=== PATIENT | male | born 1990 | race Caucasian/White ===

== ENCOUNTER 2020-11-14 12:29 | Emergency (ER) | payer OTHER, SELFPAY ==
--- NOTE | 2020-11-14 | ECG_ITS ---
Test Reason : CHEST PAIN Blood Pressure : / mmHG Vent. Rate : 071 BPM Atrial Rate : 071 BPM P-R Int : 160 ms QRS Dur : 082 ms QT Int : 368 ms P-R-T Axes : 052 062 042 degrees QTc Int : 399 ms Normal sinus rhythm Normal ECG No previous ECGs available Referred By: Isabel Higginbotham Electronically Signed By:MARCO LIN
--- NOTE | ~2020-11-14 | XR_ITS ---
EXAMINATION: XR CHEST CLINICAL INFORMATION: Chest pain COMPARISON: None TECHNIQUE: AP portable view of the chest was obtained. FINDINGS: No significant abnormality is noted involving the heart, lungs, mediastinum, bony thorax or soft tissues. XR/XR chest 1V IMPRESSION: No acute disease
[2020-11-14 12:34] VITALS: BP 155/92; PULSE 66; RESP 18; TEMP 36.2; O2SAT 98; BMI 29.6
--- NOTE | 2020-11-14 12:39 | PC.NURSE ---
NO EKG MACHINE AVAILABLE AT THIS TIME
--- NOTE | 2020-11-14 14:24 | ED_ITS ---
HPI - Chest Pain General Chief Complaint: Chest Pain Stated Complaint: bad chest pain Time Seen by Provider: 11/14/20 14:24 Source: patient Mode of arrival: ambulatory Limitations: no limitations History of Present Illness MD complaint: chest pain Onset (ago): hour(s) (started at work 11am) Timing of current episode: other (improving) Prior episodes: No Onset: during rest Pain location: left chest Pain radiation: left shoulder Severity: moderate Quality: sharp Relieving factors: nothing Exacerbating factors: nothing Treatment prior to arrival: none Related Data Home Medications Medication Instructions Recorded Confirmed No Known Home Meds 11/14/20 11/14/20 Allergies Allergy/AdvReac Type Severity Reaction Status Date / Time No Known Allergies Allergy Verified 11/14/20 12:37 Review of Systems Review of Systems: Constitutional : No Weight loss, No Fever, No Chills ENT/Mouth : No sore throat, No Rhinorrhea Eyes: No Eye Pain, No Swelling Cardiovascular : pos Chest Pain, no SOB, no Dyspnea on Exertion, No Orthopnea, No Edema, No Palpitations Respiratory : No Cough, No Sputum Gastrointestinal : pos Nausea, No Vomiting, No Diarrhea, No abdominal Pain, No Hematochezia, No Melena Genitourinary : No Dysuria, No Urinary Frequency Musculoskeletal : No joint pain, No Myalgias, No Joint Swelling Skin : No Skin Lesions, No rash Neuro : No Weakness, No Numbness, No Dizziness, No Headache Psych : No Anxiety/Panic, No Depression Heme/Lymph: No Bruising, No Lymphadenopathy Endocrine : No Polyuria, No Polydipsia All other systems reviewed and are negative [facility] Past Medical History Medical History No known health problems Social History Social History (Updated 11/14/20 @ 14:41 by Isabel Higginbotham DO) Alcohol intake: current Alcohol intake frequency: a few times a week Patient Tobacco Use Status: Current everyday Tobacco user Smoked in Last 30 Days: No Use of substances other than those prescribed or required for medical reasons: No Advance Directives: Yes Advance Directives Information Provided: No Advance Directives on File: No Physical Exam Vital Signs: Vital Signs: Last Vital Signs Temp 97.2 F 11/14/20 12:34 Pulse 63 11/14/20 14:44 Resp 15 11/14/20 14:44 BP 147/90 H 05/27/21 14:44 Pulse Ox 98 11/14/20 14:44 Body Mass Index 29.6 Appearance: Alert. Oriented X3. No acute distress. BP R arm 147/90 L arm 144/95 Eyes: Pupils equal, round and reactive to light. ENT: Pharynx normal. Neck: Normal inspection. Neck supple. CVS: Normal heart rate and rhythm. Pulses normal. Respiratory: No respiratory distress. Breath sounds normal. Abdomen: Soft and nontender. Skin: Skin warm and dry. Normal skin color. Normal skin turgor. Extremities: No lower extremity edema. No calf ttp Neuro: Oriented X 3. No motor deficit. No sensory deficit. Course Course Course Narrative: signed out pending repeat troponin if negative doubt ACS/dissection/PE repeat trop negative MDM - Chest Pain MDM Narrative Medical decision making narrative: 30 yo male no sig ACS risk factors, only smoking at this time c/o sharp chest pain with no other associated symptoms - seems atypical for ACS, heart score 1, PERC negative, symmetric BPs bilaterally, troponin x 2, denies need for pain medications Lab Data Result diagrams: 11/14/20 14:57 11/14/20 14:57 Labs: Lab Results 11/14/20 11/14/20 11/14/20 Range/Units 14:57 14:57 14:57 WBC 9.2 (4.8-10.8) X10*3/uL RBC 5.37 (4.60-5.80) X10*6/uL Hgb 15.4 (14.0-18.0) g/dl Hct 45.5 (42-52) % MCV 84.7 (80-98) fL MCH 28.7 (27.0-33.0) pg MCHC 33.8 (31.0-36.0) g/dl RDW 12.9 (11.0-16.0) % Plt Count 268 (160-400) X10*3/uL MPV 9.4 (9.4-12.4) fL Immature Gran % (Auto) 0.3 (0.0-0.4) % Neut % (Auto) 65.2 (45-73) % Lymph % (Auto) 25.5 (20-40) % [place] % (Auto) 7.4 (2-11) % Eos % (Auto) 1.0 (0-4) % Baso % (Auto) 0.6 (0-2) % Lymph # (Auto) 2.4 (1.2-4.9) X10*3/uL [place] # (Auto) 0.7 (0.1-1.2) X10*3/uL Eos # (Auto) 0.1 (0.0-0.4) X10*3/uL Baso # (Auto) 0.1 (0.0-0.2) X10*3/uL Abs Immat Gran (auto) 0.03 (0.00-0.03) X10*3/uL Absolute Neuts (auto) 6.0 (2.0-8.3) X10*3/uL Absolute Nucleated RBC 0.000 (0.0-0.012) X10*3/uL Nucleated RBC % (auto) 0.0 (0.0-0.2) /100WBC D-Dimer < 200 NG/ML Sodium 141 (135-145) mmol/L Potassium 4.5 (3.3-5.1) mmol/L Chloride 103 (96-108) mmol/L Carbon Dioxide 27 (22-29) mmol/L Anion Gap 16 (12-20) BUN 8 L (9-16) mg/dL Creatinine 0.99 (0.5-1.4) mg/dL Estim Creat Clear Calc 117.9 Estimated GFR > 60 Random Glucose 75 (60-115) mg/dL Calcium 9.7 (8.4-10.2) mg/dL Magnesium 1.8 (1.6-2.6) mg/dL Total Bilirubin 0.5 (0.0-1.0) mg/dL Direct Bilirubin 0.2 (0.0-0.5) mg/dL AST 22 (5-37) U/L ALT 22 (0-40) U/L Alkaline Phosphatase 59 (39-117) U/L Troponin I High Sens (<3.5-35.0) ng/L Total Protein 7.3 (6.5-8.0) g/dL Albumin 4.8 (3.5-5.0) g/dL Lipase 12 (8-78) U/L 11/14/20 11/14/20 Range/Units 14:57 16:50 WBC (4.8-10.8) X10*3/uL RBC (4.60-5.80) X10*6/uL Hgb (14.0-18.0) g/dl Hct (42-52) % MCV (80-98) fL MCH (27.0-33.0) pg MCHC (31.0-36.0) g/dl RDW (11.0-16.0) % Plt Count (160-400) X10*3/uL MPV (9.4-12.4) fL Immature Gran % (Auto) (0.0-0.4) % Neut % (Auto) (45-73) % Lymph % (Auto) (20-40) % [place] % (Auto) (2-11) % Eos % (Auto) (0-4) % Baso % (Auto) (0-2) % Lymph # (Auto) (1.2-4.9) X10*3/uL [place] # (Auto) (0.1-1.2) X10*3/uL Eos # (Auto) (0.0-0.4) X10*3/uL Baso # (Auto) (0.0-0.2) X10*3/uL Abs Immat Gran (auto) (0.00-0.03) X10*3/uL Absolute Neuts (auto) (2.0-8.3) X10*3/uL Absolute Nucleated RBC (0.0-0.012) X10*3/uL Nucleated RBC % (auto) (0.0-0.2) /100WBC D-Dimer NG/ML Sodium (135-145) mmol/L Potassium (3.3-5.1) mmol/L Chloride (96-108) mmol/L Carbon Dioxide (22-29) mmol/L Anion Gap (12-20) BUN (9-16) mg/dL Creatinine (0.5-1.4) mg/dL Estim Creat Clear Calc Estimated GFR Random Glucose (60-115) mg/dL Calcium (8.4-10.2) mg/dL Magnesium (1.6-2.6) mg/dL Total Bilirubin (0.0-1.0) mg/dL Direct Bilirubin (0.0-0.5) mg/dL AST (5-37) U/L ALT (0-40) U/L Alkaline Phosphatase (39-117) U/L Troponin I High Sens < 3.5 < 3.5 (<3.5-35.0) ng/L Total Protein (6.5-8.0) g/dL Albumin (3.5-5.0) g/dL Lipase (8-78) U/L ECG Data ECG #1: Attestation: I personally reviewed and interpreted this ECG as follows: ECG interpretation date: 11/14/20 ECG interpretation time: 14:29 Interpretation: Rate: 71 Rhythm: NSR [place]: normal Normal P waves. Normal VERONICA. Normal QRS complex. ST T wave : no BESSIE, normal qTC: normal prior studies: no acute ischemia The study has been interpreted contemporaneously by me. . Scores Heart Score History: -0- slightly suspicious ECG: -0- normal Age: -0- < or = 45 Risk factory: -1- 1 or 2 risk factors Troponin: -0- < or = normal limit Score: 1 Risk: 1.7% Additional Scores PERC Score: Score: 0 Discharge Plan Discharge Clinical Impression: Atypical chest pain Patient Disposition: Home, Self-Care Instructions: Chest Pain (ED) Additional Instructions: return to ED for any worsening symptoms or concerns Prescriptions: No Action No Known Home Meds RF: 0 Referrals: Physician,Unknown [Primary Care Provider] - 2 days Stand Alone Forms: Work/School Release
[2020-11-14 14:44] VITALS: BP 147/90; PULSE 61; PULSE 63; RESP 15; O2SAT 98
[2020-11-14 15:12] LABS: MANUAL DIFF FLAG NO
[2020-11-14 15:17] LABS: Basophils Absolute Auto 0.1 X10*3/uL (0.0-0.2); Basophils Percent Auto 0.6 % (0-2); Eosinophils Absolute Auto 0.1 X10*3/uL (0.0-0.4); Hematocrit 45.5 % (42-52); Hemoglobin 15.4 g/dl (14.0-18.0); Imm Gran Abs Auto 0.03 X10*3/uL (0.00-0.03); Imm Gran Pct Auto 0.3 % (0.0-0.4); Lymphocytes Absolute Auto 2.4 X10*3/uL (1.2-4.9); Lymphocytes Percent Auto 25.5 % (20-40); Mean Corpuscular HGB Conc 33.8 g/dl (31.0-36.0); Mean Corpuscular Hemoglobin 28.7 pg (27.0-33.0); Mean Corpuscular Volume 84.7 fL (80-98); Mean Platelet Volume 9.4 fL (9.4-12.4); Monocytes Absolute Auto 0.7 X10*3/uL (0.1-1.2); Monocytes Percent Auto 7.4 % (2-11); Neutrophils Percent Auto 65.2 % (45-73); Platelet Count 268 X10*3/uL (160-400); Red Blood Count 5.37 X10*6/uL (4.60-5.80); Red Cell Distribution Width 12.9 % (11.0-16.0); White Blood Count 9.2 X10*3/uL (4.8-10.8)
[2020-11-14 15:33] LABS: D Dimer < 200 NG/ML
[2020-11-14 15:48] LABS: Alanine Aminotransferase 22 U/L (0-40); Albumin Level 4.8 g/dL (3.5-5.0); Alkaline Phosphatase 59 U/L (39-117); Anion Gap 16 (12-20); Aspartate Amino Transferase 22 U/L (5-37); Bilirubin Direct 0.2 mg/dL (0.0-0.5); Bilirubin Total 0.5 mg/dL (0.0-1.0); Blood Urea Nitrogen 8 mg/dL (9-16); Calcium 9.7 mg/dL (8.4-10.2); Carbon Dioxide 27 mmol/L (22-29); Chloride 103 mmol/L (96-108); Creatinine Clr Calc Pharmacy 117.9; Estimated Glomerular Filt Rate > 60; Glucose Random 75 mg/dL (60-115); Lipase 12 U/L (8-78); Magnesium 1.8 mg/dL (1.6-2.6); Potassium 4.5 mmol/L (3.3-5.1); Sodium 141 mmol/L (135-145); Total Protein 7.3 g/dL (6.5-8.0)
[2020-11-14 15:56] LABS: Troponin-I High Sensitivity < 3.5 ng/L (<3.5-35.0)
[2020-11-14 17:28] LABS: Troponin-I High Sensitivity < 3.5 ng/L (<3.5-35.0)
[2020-11-14 17:38] VITALS: BP 125/74; PULSE 62; RESP 16; O2SAT 97
== END 2020-11-14 17:50 | disposition home or self-care (01) ==
PROVIDERS: Emergency Provider Emergency Medicine
DX: R07.89 Other chest pain (principal); M25.512 Pain in left shoulder; F17.210 Nicotine dependence, cigarettes, uncomplicated; Z71.6 Tobacco abuse counseling
CPT/HCPCS: 36415; 71045; 80048; 80076; 83690; 83735; 84484; 85025; 85379; 93005; 99285